=== PATIENT | female | born 1990 | race Caucasian/White ===

== ENCOUNTER 2022-06-27 21:57 | Emergency (ER) | payer MEDICAID ==
[~2022-06-27] VITALS: Ht 152.4 cm; Wt 78.0 kg
[2022-06-27 22:11] VITALS: BP 140/92
== END 2022-06-28 04:22 | disposition left against medical advice (07) ==
LOC: ER 21:57
DX: Z53.21 Procedure and treatment not carried out due to patient leaving prior to being seen by health care provider (principal)